=== PATIENT | male | born 1960 | race Caucasian/White ===

== ENCOUNTER 2025-05-02 14:42 | Emergency (ER) | payer MEDICARE, SELFPAY ==
[2025-05-02 14:45] VITALS: BP 207/135
[2025-05-02 15:30] LABS: Hematocrit 49.4 % (39.0-52.0); Hemoglobin 17.3 g/dL (13.0-18.0); Mean Corp Hgb Conc. 35.0 g/dL (33.0-37.0); Mean Corpuscular Volume 92.7 fL (80.0-94.0); Nucleated Red Blood Cells % 0 % (-); Platelet Count 328 10^3/uL (130-400); Red Cell Dist. Width 13.2 % (11.5-14.5)
[2025-05-02 15:36] LABS: Urine Character Clear (Clear)
[2025-05-02 15:49] LABS: ALT (SGPT) 47 U/L (0-50); AST (SGOT) 28 U/L (17-59); Albumin 4.6 g/dl (3.5-5.0); Alkaline Phosphatase 83 U/L (38-126); Blood Urea Nitrogen 13 mg/dl (9-20); Calcium 9.7 mg/dl (8.4-10.2); Carbon Dioxide 27 mmol/L (22-30); Chloride 102 mmol/L (98-107); Glucose 112 mg/dl (70-99); Potassium 4.4 mmol/L (3.5-5.1); Sodium 134 mmol/L (135-145); Total Protein 7.9 g/dl (6.3-8.2); eGFR > 60.00
[2025-05-02 15:58] LABS: Urine Red Blood Cell 0-2 /HPF (0-2); Urine Squamous Cell 0-2 /LPF (Few); Urine White Cell 0-2 /HPF (0-5)
--- NOTE | 2025-05-02 18:23 | ED.GENMED ---
History of Present Illness
General
Chief Complaint: Abdominal Pain
Time Seen by Provider: 05/02/25 18:00
History of Present Illness
History of Present Illness:
65-year-old male presents to the emergency department for evaluation of left lower quadrant abdominal pain for the past several days. He also had some urethral dysuria today as well. No associated fever, chills, sweats, nausea, or vomiting. No
history of abdominal surgeries. Pain is minimal at this time.
Review of Systems
Review of Systems
Allergies reviewed?: Yes
All Other Systems: ROS reviewed and negative except as documented in HPI and ROS
Phy Exam
Physical Exam
Physical Exam:
GEN: Well appearing, NAD, WDWN
HEENT: Oral mucosa moist, no scleral icterus
Cardiac: Regular rate
Lung: No respiratory distress, no tachypnea
Abdomen: Soft, mild left lower quadrant tenderness, no rigidity or peritoneal sign
MSK: No gross deformity or injuries
Skin: Good color, no pallor or jaundice, no rashes
Neuro: AO x3, moves all extremities freely
Psych: Calm, cooperative
Course
Orders/Labs/Results
Orders:
Orders
05/02/25 14:55
Abdomen/Pelvis wo Contrast CT [CT Abd/pelvis Wo Iv Cont] Urgent
Comment:
Reason For Exam: pain
05/02/25 15:17
Urinalysis Reflex To Culture Urgent
Date Specimen was Collected: 05/02/25
Time Specimen was Collected: 14:51
Urine Microscopic Reflex Cult Urgent
05/02/25 15:20
Complete Blood Count/With Diff Urgent
Comprehensive Metabolic Panel Urgent
05/02/25 18:25
Amoxicillin 875 mg/Clav 125 mg [Augmentin 875 mg/125 mg] 1 tablet PO NOW STA
Abnormal Lab Results
05/02/25 05/02/25
15:17 15:20
MCH 32.5 H pg
(27.0-31.0)
Absolute Neuts (auto) 6.7 H 10^3/uL
(1.4-6.5)
Absolute Monos (auto) 0.9 H 10^3/uL
(0.1-0.6)
Sodium 134 L mmol/L
(135-145)
Glucose 112 H mg/dl
(70-99)
Urine Bacteria (Reflex) Few A
(Negative)
Urine Albumin (Reflex) 1+ A
(Neg - Trace)
05/02/25 15:20
05/02/25 15:20
Vital Signs
Initial and Last Documented VS:
Initial Vital Signs
Temp Pulse Resp BP Pulse Ox
97.9 F 104 18 207/135 96
05/02/25 14:45 05/02/25 14:45 05/02/25 14:45 05/02/25 14:45 05/02/25 14:45
Last Documented Vital Signs
Temp Pulse Resp BP Pulse Ox
98.3 F 91 18 193/130 97
05/02/25 18:42 05/02/25 18:42 05/02/25 18:42 05/02/25 18:42 05/02/25 18:42
MDM/Problems Addressed
MDM/Problems Addressed:
Workup reveals acute diverticulitis. Patient is clinically well with normal labs. Suitable for outpatient management
*Pulse Oximetry
SaO2: 96
Oxygen Mode of Delivery: Room air
Patient hypoxic: no
*Critical Care Note
Total Time (30-74mins, 75-104mins- exclusive of procedures): Not Applicable
ED Attending Note
-
Portions of this chart may have been created with voice recognition software.� Occasional wrong word or��sound alike� substitutions may have occurred due to the inherent limitations of voice recognition software.
Discharge Plan
Departure
Patient Disposition: Home (Routine Discharge)
Date of Disposition: 05/02/25
Time of Disposition: 18:25
Patient with high blood pressure during this ER visit?: Yes
Discharge Problem:
Acute diverticulitis
Instructions: Clear Liquid Diet, Diverticulitis (DC)
Prescriptions:
New
amoxicillin-pot clavulanate 875-125 mg tablet
1 tab PO BID Qty: 19 0RF
Referrals:
NONE,* [Family Provider, Internal Medicine]
Interventions
Interventions:
*Risk Screen - Suicide Last Done: 05/02/25 14:45
*General Assessment Last Done: 05/02/25 18:35
*Neglect/Abuse Screening Last Done: 05/02/25 18:35
*ED- Fall Risk Assessment Last Done: 05/02/25 18:35
*ED COVID-19 Vaccine History Last Done: 05/02/25 18:35
*ED Influenza Vaccine History Last Done: 05/02/25 18:35
*Nursing Disposition Last Done: 05/02/25 18:43
CS-Ylrxoj-Qolanzehvg Assessment Last Done: 05/02/25 18:35
Discharge Date and Time
Discharge Date/Time: 05/02/25 18:44
Print Language: PERSIAN
[2025-05-02] MEDS: AUGMENTIN 875 MG/125 MG 1 TABLET PO (18:37)
[2025-05-02 18:42] VITALS: BP 193/130
== END 2025-05-02 18:44 | disposition home or self-care (01) ==
LOC: EMR 14:42
PROVIDERS: Emergency Medicine; EMERGENCY PHYSICIAN Emergency Medicine
DX: K57.32 Diverticulitis of large intestine without perforation or abscess without bleeding (principal); K59.00 Constipation, unspecified; N40.0 Benign prostatic hyperplasia without lower urinary tract symptoms
CPT/HCPCS: 99284; 74176; 80053; 81003; 81015; 85025